=== PATIENT | male | born 1940 | race Caucasian/White ===

== ENCOUNTER → 2016-11-07 | Day surgery (SDC) | payer MEDICARE, OTHER ==
[~2016-11-07] MED LIST: Lactated Ringers 1,000 ML IV SCH; Propofol 200 MG/20 ML SDV ONE; fentaNYL 100 MCG/2 ML SDV ONE
[2016-11-07 11:35] VITALS: BP 97/80
--- NOTE | 2016-11-10 08:54 | OR ---
PREOPERATIVE DIAGNOSIS: Blood in stool. POSTOPERATIVE DIAGNOSES: Large sigmoid polyp, removed; and sigmoid diverticulosis. PROCEDURE PROPOSED: Total flexible colonoscopy. PROCEDURE DONE: Total flexible colonoscopy with hot snare polypectomy x1. INDICATION: This is a 76-year-old gentleman who noted some blood in the stool recently. He has not had a colonoscopy for many years and he was referred for evaluation. TECHNIQUE: The patient brought to the endoscopy suite, placed in left lateral decubitus position. He was sedated with propofol per CONTRACT ADMINISTRATION MANAGER. He was in the left lateral decubitus position. The flexible videocolonoscope was then passed transanally and under visualization advanced to the cecum. Examination revealed a normal ascending, transverse, and descending colon. The sigmoid colon revealed some diverticulosis and at 25 cm from anal verge, there was a fairly large pedunculated polyp that looked friable and certainly could have been the source of bleeding. This was snared with a hot snare and cut through the fairly long stalk and was brought out with suction and then went back and looked at the lower 25 cm again. He was noted to have some diverticulosis. No other abnormalities were noted. He seemed to have a little bit of blood streaking in the rectum most likely from this polyp and the scope was then withdrawn. He tolerated the procedure well. IMPRESSION: 1. Large pedunculated polyp at 25 cm, removed. 2. Sigmoid diverticulosis. PLAN: It was felt that this polyp most likely was the source of his blood that he noted. A good removal obtained and he will be sent a letter with the Pathology report. I felt that he should have a followup examination again in 3 to 5 years because of this large polyp. SCM: 11/07/2016 11:15:20 MODL: 11/07/2016 18:11:00 /[id number]
--- NOTE | 2016-11-17 08:17 | LETTER ---
11/14/2016 RE: MICHELLE CORNELL : 1940 Dear Michelle: The polyp removed from your colon was a benign tubular adenoma. This is considered a precancerous polyp and it was quite large measuring 1.2 cm. Because of this finding, I feel that you should have a 3-year followup exam of your colon to make sure you are not forming any new polyps. If none are found on your next exam, you could spread it out to every 5 years. If you have any further questions regarding this, feel free to call. Respectfully,
== END ==
LOC: VM.SDS 09:08
PROVIDERS: ATTEND Surgery
DX: D12.6 Benign neoplasm of colon, unspecified (principal); K57.30 Diverticulosis of large intestine without perforation or abscess without bleeding; E78.00 Pure hypercholesterolemia, unspecified; N40.0 Benign prostatic hyperplasia without lower urinary tract symptoms; Z98.890 Other specified postprocedural states; Z79.899 Other long term (current) drug therapy
CPT/HCPCS: 00810; 45385; J2704; J3010; J7120; 88305

== ENCOUNTER 2016-12-24 08:26 | Day surgery (SDC) | payer MEDICARE, OTHER ==
[~2016-12-24 08:26] MED LIST changes: -Propofol 200 MG/20 ML SDV ONE; -fentaNYL 100 MCG/2 ML SDV ONE
[2016-12-24] MEDS ORDERED: Midazolam 1 MG/ML 2 ML SDV ONE (10:16)
[2016-12-24] MEDS ORDERED: fentaNYL 100 MCG/2 ML SDV ONE (10:16)
[2016-12-24] MEDS ORDERED: Propofol 200 MG/20 ML SDV ONE ×2 (10:17→11:04)
[2016-12-24] MEDS ORDERED: Bupivacaine 0.25%/EPINEPHrine 1:200,000 30 ML SDV ONE ×2 (10:23→10:58)
[2016-12-24] MEDS ORDERED: Bupivacaine 0.25%/EPINEPHrine 1:200,000 30 ML SDV INJECT ONE (10:52)
[2016-12-24 11:51] VITALS: BP 110/67
--- NOTE | 2016-12-24 23:09 | OR ---
PREOPERATIVE DIAGNOSIS: Large posterior neck lipoma. POSTOPERATIVE DIAGNOSIS: Large posterior neck lipoma. PROCEDURE PROPOSED: Excision large lipoma posterior neck 7 x 5 cm. PROCEDURE DONE: Excision large lipoma posterior neck 7 x 5 cm. INDICATION: This is a 76-year-old gentleman with a rather large increasingly symptomatic lipoma in the posterior lower neck that he has had for 8-10 years and has to the point where I felt we need to remove this and he comes in for elective surgery. TECHNIQUE: The patient was brought to the operative suite, placed in the right lateral decubitus position. He was given MAC anesthesia with propofol and the posterior neck area was then sterilely prepped and draped. The area was then locally anesthetized with 0.25% Marcaine with epinephrine circumferentially injecting the local medicine around the mass, which was quite large and protuberant. I used approximately 30 mL of local anesthesia. I then made a transverse incision, carried down through subcutaneous tissue. The lipoma mass was then encountered. It was fairly well encapsulated. I then used cautery to dissect it free from the surrounding tissue. It did extend all the way down to the underlying muscle fascia and it was removed intact and measured 7 x 5 cm. Hemostasis was obtained in depths of the wound and the subcutaneous tissue was then reapproximated with interrupted 3-0 Vicryl, also trying to anchor to the underlying muscle fascia to obliterate the space. The skin was then closed with a subcuticular stitch of 4-0 Vicryl and a pressure dressing was applied. He tolerated the procedure well with minimal blood loss and was taken back to [facility] in good condition. SCM: 12/24/2016 11:28:05 MODL: 12/24/2016 23:03:49 /[id number]
== END 2016-12-24 12:50 | disposition home or self-care (01) ==
LOC: VM.SDS 08:26
PROVIDERS: ATTEND Surgery
DX: E65 Localized adiposity (principal); Z98.890 Other specified postprocedural states; Z96.652 Presence of left artificial knee joint; Z87.891 Personal history of nicotine dependence
CPT/HCPCS: 00300; 21554; J2250; J2704; J3010; J7120; 88304

== ENCOUNTER 2018-04-04 09:10 | Emergency (ER) | payer MEDICARE, OTHER ==
[2018-04-04] MEDS ORDERED: Take Home: Sulfamethoxazole/Trimethoprim 800-160 MG Tab, 2 Tab Pack PO ONE (09:31)
[2018-04-04 12:38] VITALS: BP 116/72
--- NOTE | 2018-04-04 18:22 | EDM.PDOC ---
ED HPI GENERAL MEDICAL PROBLEM - General Chief Complaint: Skin Complaint Stated Complaint: BITE ON R HAND Time Seen by Provider: 04/04/18 09:20 Source of Information: Reports: Patient History Limitations: Reports: No Limitations - History of Present Illness INITIAL COMMENTS - FREE TEXT/NARRATIVE: Pt. sustained an insect bite to R posterior hand/wrist area. This happened approx. 1 week ago. Denies any fever or chills. No other discomfort or bites elsewhere. Onset Date: 03/29/18 Location: Reports: Upper Extremity, Right Quality: Reports: Burning Severity: Mild Associated Symptoms: Reports: Rash - Related Data Allergies Allergy/AdvReac Type Severity Reaction Status Date / Time No Known Allergies Allergy Verified 12/24/16 09:02 Home Meds: Home Meds Multivitamin with Minerals [Multiple Vitamin] 1 tab PO DAILY 08/15/15 [History] Simvastatin [Zocor] 20 mg PO DAILY 08/15/15 [History] Tamsulosin [Flomax] 0.4 mg PO DAILY 08/15/15 [History] Fish Oil/[place]-3 Fatty Acids [Fish Oil 1,000 MG] 1 tab PO DAILY 11/04/16 [ History] Past Medical History HEENT History: Reports: Cataract, Hard of Hearing Cardiovascular History: Reports: High Cholesterol Respiratory History: Reports: None Gastrointestinal History: Reports: Colon Polyp Genitourinary History: Reports: BPH, Other (See Below) Other Genitourinary History: low testosterone Musculoskeletal History: Reports: None Neurological History: Reports: None Psychiatric History: Reports: None Endocrine/Metabolic History: Reports: None Hematologic History: Reports: None Immunologic History: Reports: None Oncologic (Cancer) History: Reports: None Dermatologic History: Reports: None - Past Surgical History Head Surgeries/Procedures: Reports: None HEENT Surgical History: Reports: Cataract Surgery Cardiovascular Surgical History: Reports: None GI Surgical History: Reports: Colonoscopy Musculoskeletal Surgical History: Reports: Knee Replacement Other Musculoskeletal Surgeries/Procedures:: left Oncologic Surgical History: Reports: None Social & Family History - Tobacco Use Smoking Status *Q: Never Smoker - Recreational Drug Use Recreational Drug Use: No ED ROS GENERAL - Review of Systems Review Of Systems: See Below Constitutional: Reports: No Symptoms Musculoskeletal: Reports: Hand Pain Skin: Reports: Pruritis, Erythema, Other (R posterior hand/wrist) ED EXAM, SKIN/RASH Exam: See Below Exam Limited By: No Limitations General Appearance: Alert, WD/WN, No Apparent Distress Extremities: Increased Warmth, Redness, Other (confluent erythemous area to posterior aspect of R hand/wrist. Mild edema. evidence of an bite noted to center of the area.) Skin: Erythema, Increased Warmth Course - Vital Signs Last Recorded V/S: Last Vital Signs Temp 36.8 C 04/04/18 09:10 Pulse 78 04/04/18 09:10 Resp 18 04/04/18 09:10 BP 116/72 04/04/18 09:10 Pulse Ox 98 04/04/18 09:10 - Orders/Labs/Meds Meds: Medications Discontinued Medications Generic Name Dose Route Start Last Admin Trade Name Freq PRN Reason Stop Dose Admin Trimethoprim/Sulfamethoxazole 1 packet 04/04/18 09:31 Take Home: Sulfameth/Trimet 800-160mg, 2 Pack PO 04/04/18 09:32 ONETIME ONE Departure - Departure Time of Disposition: 10:00 Disposition: Home, Self-Care 01 Clinical Impression: Cellulitis - Discharge Information Instructions: Cellulitis, Adult, Probiotics Referrals: Freddie Salter MD [Primary Care Provider] - Forms: ED Department Discharge Additional Instructions: Bactrim DS 1 twice daily for 10 days If continuing to itch, benadryl 50mg every 6 hours Follow-up in clinic in 10-14 days for recheck - Problem List Review Problem List Initiated/Reviewed/Updated: Yes - Assessment/Plan Plan: Bactrim DS 1 twice daily for 10 days If continuing to itch, benadryl 50mg every 6 hours Follow-up in clinic in 10-14 days for recheck
== END 2018-04-04 09:45 | disposition home or self-care (01) ==
LOC: VM.ED 09:10
DX: L03.113 Cellulitis of right upper limb (principal); E78.00 Pure hypercholesterolemia, unspecified; Z79.899 Other long term (current) drug therapy
CPT/HCPCS: 99283; 99283-GF; A9270-GY

== ENCOUNTER 2020-03-14 06:43 | Day surgery (SDC) | payer MEDICARE, OTHER ==
[2020-03-12 13:51] LABS: CORONAVIRUS COVID-19 RAPID NEGATIVE (NEGATIVE)
[2020-03-14] MEDS: Lactated Ringers 1,000 ML IV SCH (07:00)
[2020-03-14] MEDS ORDERED: fentaNYL 100 MCG/2 ML SDV ONE (07:34)
[2020-03-14] MEDS ORDERED: Propofol 200 MG/20 ML SDV ONE (07:34)
[2020-03-14 08:15] VITALS: PULSE 67
[2020-03-14 08:35] VITALS: BP 110/74
--- NOTE | 2020-03-15 09:39 | OR ---
PREOPERATIVE DIAGNOSES: 1. Screening colonoscopy. 2. History of large pedunculated polyp in the sigmoid colon 3 years ago. POSTOPERATIVE DIAGNOSES: 1. Screening colonoscopy. 2. History of large pedunculated polyp in the sigmoid colon 3 years ago. 3. Normal total flexible colonoscopy. PROCEDURE PERFORMED: Total flexible colonoscopy. ANESTHESIA: MAC anesthesia. COMPLICATIONS: None. BLOOD LOSS: Minimal. FINDINGS: 1. This was a normal total flexible colonoscopy. 2. I saw no evidence of a recurrent polyp in the sigmoid colon as reported by the previous endoscopist, Dr. David Marcos. START TIME: 07:43. CECUM TIME: 07:45. STOP TIME: 07:58. BOWEL PREP: [place] class 3. INDICATIONS FOR PROCEDURE: Mr. Reese is a 80-year-old male, who is here for screening colonoscopy. He had a screening colonoscopy 3 years ago, at which point a large pedunculated polyp was removed. Due to the size being larger than a centimeter, he was recommended for 3-year interval screen. He otherwise denies bloody or dark black stools. No change in bowel habits. No family history of colon cancer. DETAILS OF PROCEDURE: After informed consent was obtained, the patient was brought to the procedure room and placed in the left lateral decubitus position. MAC anesthesia was induced per Anesthesia colleagues without incident. Colonoscope equipped with an Endocuff device was introduced into the rectum and advanced all the way to the cecum. The appendiceal orifice and ileocecal valve were identified and photographed. The colonoscope was then slowly withdrawn. There was some liquid stool, which was able to be adequately suctioned out and the mucosa evaluated thoroughly. No abnormalities were identified on this exam. Then retroflexed view was obtained and the colonoscope was then removed. The patient tolerated the procedure well, was awoken from MAC anesthesia by Anesthesia colleagues without incident. I recommend repeat screening colonoscopy in 5 years due to the history of a large polyp. RKM: 03/14/2020 08:04:03 MODL: 03/14/2020 16:13:36 /[id number]
== END 2020-03-14 09:02 | disposition home or self-care (01) ==
LOC: VM.SDS 06:43
PROVIDERS: ATTEND Student in an Organized Health Care Education/Training Program
DX: Z12.11 Encounter for screening for malignant neoplasm of colon (principal); Z98.890 Other specified postprocedural states; Z01.812 Encounter for preprocedural laboratory examination; Z20.828 Contact with and (suspected) exposure to other viral communicable diseases; E78.5 Hyperlipidemia, unspecified; H25.9 Unspecified age-related cataract; H91.93 Unspecified hearing loss, bilateral; N40.0 Benign prostatic hyperplasia without lower urinary tract symptoms; M11.20 Other chondrocalcinosis, unspecified site; M17.11 Unilateral primary osteoarthritis, right knee; E78.00 Pure hypercholesterolemia, unspecified; Z79.899 Other long term (current) drug therapy; Z86.010 Personal history of colon polyps; Z87.891 Personal history of nicotine dependence
CPT/HCPCS: 00811; J2704; J3010; J7120; U0002

== ENCOUNTER 2024-01-14 14:55 | Emergency (ER) | payer MEDICARE, OTHER ==
[2024-01-14 15:25] VITALS: BP 124/65; PULSE 68
[2024-01-14] MEDS: Diphtheria,Pertussis(Acell),Tetanus Vaccine 0.5 ML Syringe IM ONE (16:40)
[2024-01-14] MEDS: Lidocaine 1% 10 ML MDV INJECT ONE (16:40)
== END 2024-01-14 16:49 | disposition home or self-care (01) ==
LOC: VM.ED 14:55
DX: S61.216A Laceration without foreign body of right little finger without damage to nail, initial encounter (principal); E78.00 Pure hypercholesterolemia, unspecified; Z23 Encounter for immunization; Z79.899 Other long term (current) drug therapy; W23.1XXA Caught, crushed, jammed, or pinched between stationary objects, initial encounter
CPT/HCPCS: 12001; 90471; 90715; 99282-25; J3490